=== PATIENT | male | born 2005 | race Caucasian/White ===

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

== ENCOUNTER 2024-07-23 11:56 | Emergency (ER) | payer SELFPAY ==
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
[2024-07-23 12:03] VITALS: BP 142/89; PULSE 53; RESP 15; TEMP 36.5; O2SAT 100
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
[2024-07-23 13:26] VITALS: BP 131/80; PULSE 56; O2SAT 99
== END 2024-07-23 13:27 | disposition home or self-care (01) ==
PROVIDERS: Emergency Provider Physician Assistant
DX: L02.511 Cutaneous abscess of right hand (principal); F17.290 Nicotine dependence, other tobacco product, uncomplicated
CPT/HCPCS: 73130; 87070; 87075; 87077; 87186; 87205; 99283